=== PATIENT | female | born 1965 | race Caucasian/White ===

== ENCOUNTER 2017-03-24 11:31 | Emergency (ER) | payer SELFPAY ==
[~2017-03-24] VITALS: Ht 172.7 cm; Wt 59.0 kg
--- NOTE | ~2017-03-24 | CT71 ---
[facility] A Service of [facility] RADIOLOGY TEXT RESULTS PATIENT: CARMEN LOPEZ LOCATION: SED : 65 UNIT #: [id number] AGE: [address]: Mckinley Eason MD SEX: F ORDER DR: [id number] [place] [id number] E MR#: [id number] Acc #: [id number] NAME: CARMEN LOPEZ : 1965 SEX: F STUDY DATE/TIME: 03/24/2017 12:25 UNIT: SED ROOM: STUDY DESCRIPTION: CT Head Wo Contrast Attending Physician: Mckinley Eason M.D. Ordering Physician: Mckinley Eason M.D. Primary Care Physician: Enriqueta Primary Care Physician MEDICAL IMAGING REPORT This report is preliminary unless electronic signature is present. EXAM Head CT no contrast, 03/24/2017. INDICATION 51-year-old female "thinks she is having stroke." Right-sided weakness, numbness and tingling on the right that started in the hand around 6 o'clock this morning. Broke the right leg 2 years ago has nerve symptoms. TECHNIQUE Noncontrast CT brain compared with 05/02/2016. This CT exam was performed with one or more of the following radiation dose reduction techniques: automatic exposure control, adjustment of mA and/or kV according to patient size, and iterative reconstruction. FINDINGS CT BRAIN: There is generalized atrophy. Sulci and ventricles otherwise unremarkable. No midline shift. No evidence of acute intracranial hemorrhage. There is no mass, mass effect, or edema to suggest acute infarct and no extraaxial fluid collections are present. Globes are intact. There is mild ethmoid sinus disease. Imaging features suggest an old healed fracture deformity of the left orbital floor. Chronic septal deviation to the left. IMPRESSION 1. No clearly acute intracranial process. No evidence of acute intracranial hemorrhage. 2. Generalized atrophy. 3. Not mentioned above, there is forehead soft tissue swelling on the left. No underlying acute calvarial fracture. [facility] A Service of [facility] RADIOLOGY TEXT RESULTS PATIENT: CARMEN LOPEZ LOCATION: SED : 65 UNIT #: [id number] AGE: [address]: Mckinley Eason MD SEX: F ORDER DR: Dictated by... Marvin Brand M.D. THIS IS AN ELECTRONICALLY VERIFIED REPORT Marvin Brand M.D. at 03/24/2017 5:17 PM GILES/brandy TD: 03/24/2017 15:13 JOB #: [id number] MEDICAL IMAGING REPORT Page 1 of 1
[2017-03-24 12:19] LABS: BASOPHIL# 0.1 X10e3 (0-0.3); BASOPHIL% 1.9 % (0-2.5); EOSINOPHIL# 0.3 X10e3 (0-0.7); EOSINOPHIL% 6.4 % (0.0-7.0); HEMATOCRIT 37.7 % (35.0-45.0); LYMPHOCYTE# 1.5 X10e3 (1.0-3.5); LYMPHOCYTE% 34.3 % (17.0-45.0); MEAN CELL VOLUME 97.8 FL (83-96); MEAN CORPUSCULAR HEMOGLOBIN 33.7 PG (28-34); MEAN CORPUSCULAR HGB CONC 34.5 g/dL (30-36); MEAN PLATELET VOLUME 7.8 FL (6.5-11.5); MONOCYTE# 0.5 X10e3 (0-1.0); MONOCYTE% 10.4 % (3.0-12.0); NEUTROPHIL# 2.1 X10e3 (1.5-7.1); PLATELET COUNT 184 X10e3 (140-420); RED BLOOD COUNT 3.85 X10e (3.90-5.30); RED CELL DISTRIBUTION WIDTH 13.2 % (11.0-15.5); WHITE BLOOD COUNT 4.5 X10e3 (4.0-10.5)
[2017-03-24 12:23] LABS: DIFF IND NO
[2017-03-24 12:39] LABS: ALBUMIN SERUM 4.4 g/dL (3.5-5.0); ALKALINE PHOSPHATASE 84 U/L (32-92); ALT (SGPT) 31 U/L (10-40); AST (SGOT) 32 U/L (10-42); BILIRUBIN,TOTAL 0.4 mg/dL (0.2-2.0); BLOOD UREA NITROGEN 14 mg/dL (9-23); CALCIUM SERUM 9.3 mg/dL (8.4-10.2); CARBON DIOXIDE 25 mmol/L (22-31); CHLORIDE 107 mmol/L (100-111); CREATININE SERUM 0.7 mg/dL (0.6-1.4); GLOM FILT RATE Estimated 100.3 mL/min (>60); GLUCOSE FASTING 116 mg/dL (70-110); POTASSIUM 3.6 mmol/L (3.5-5.1); PROTEIN TOTAL SERUM 7.6 g/dL (6.0-8.3); SODIUM 139 mmol/L (135-145)
[2017-03-24 12:50] LABS: BILIRUBIN, DIRECT <0.1 mg/dL (0.0-0.2); BILIRUBIN,INDIRECT 0.3 mg/dL (0.0-0.9)
== END 2017-03-24 14:01 | disposition home or self-care (01) ==
LOC: SED 11:31
PROVIDERS: Emergency Medicine
DX: R20.2 Paresthesia of skin (principal); M25.531 Pain in right wrist; Z88.5 Allergy status to narcotic agent
CPT/HCPCS: 29125; 36415; 70450; 80048; 80076; 82947; 85025; 99285; G0480